=== PATIENT | male | born 1960 | race African-American/Black ===

== ENCOUNTER 2016-05-16 09:04 | Inpatient (IN) ==
--- NOTE | 2016-05-16 09:19 | EKG Report ---
Stationary ECG Study [facility] ER Test Date: 05/16/2016 9:19:39 AM Pat Name: JENNA SONG Department: Room: 262 Gender: M Market Research Analyst: Sridevi Hoyos : 1960 Requested by: Zoya Huang Order Number: [id number] Reading MD: RAMANA BLANTON Intervals [place] Rate: 114 P: 59 [place]: 134 QRS: 68 QRSD: 65 T: 69 QT: 276 QTc: 344 Interpretive Statements SINUS TACHYCARDIA Electronically Signed On 05-16-16 20:55:52 BRANCH OR DEPARTMENT CHIEF LIBRARIAN by RAMANA BLANTON [email or web address]
--- NOTE | 2016-05-16 09:52 | XRay Report ---
Referring Physician: Benny Hudson Exam: XR chest 1V portable Date: May 16, 2016 at 9:21 AM Reason: Shortness of breath Comparison: None Findings: The cardiac silhouette is upper normal in size. The lungs are poorly expanded, and there are scattered opacities throughout both lungs. These opacities mainly have a reticulonodular appearance and could represent pulmonary edema or pneumonia, but interstitial lung disease is not excluded. No pneumothorax or definite pleural fluid is identified. No acute osseous process is seen. Impression: There are prominent scattered opacities within both lungs. This could represent pulmonary edema or pneumonia, but interstitial lung disease is not excluded. Follow-up is recommended. PROCEDURE INTERPRETED AT [facility] DEPARTMENT OF RADIOLOGY Final Report Signed by: Dr. Brandi Golden
[2016-05-16 09:54] LABS: Basophils % 0.2 % (0.0-0.8); Eosinophils % 0.2 % (0.00-10.9); Hematocrit 47.1 VOL% (42.0-52.0); Hemoglobin 14.9 GM/DL (14.0-18.0); Immature Granulocytes % 1.3 %; Immature Granulocytes Absolute 0.22 #; Lymphocytes % 6.3 % (21.2-54.2); Mean Corpuscular HGB Conc 31.6 GM/DL (32-36); Mean Corpuscular Hemoglobin 29 PG (27-34); Mean Corpuscular Volume 92.9 FL (87-102); Mean Platelet Volume 10.8 FL (9.6-12.0); Monocytes # 1.1 10*3/uL (0.11-0.8); Monocytes % 6.8 % (1.7-12.7); Neutrophils # 13.9 10*3/uL (1.4-7.4); Neutrophils % 85.2 % (38.7-73.9); Platelet Count 187 T/CUMM (130-400); Red Blood Count 5.07 MC/CUMM (3.8-5.5); Red Cell Distribution Width 14.3 % (9.3-17.3); White Blood Count 16.3 T/CUMM (4-12)
[2016-05-16 10:34] LABS: Alanine Aminotransferase 25 U/L (16-61); Albumin 3.4 G/DL (3.4-5.0); Alkaline Phosphatase 79 U/L (45-117); Aspartate Amino Transferase 11 U/L (0-37); Blood Urea Nitrogen 19 MG/DL (7-18); Calcium 8.8 MG/DL (8.5-10.1); Glucose 130 MG/DL (74-106); Magnesium 2.3 MG/DL (1.8-2.4); Osmolality,Calculated 284.3 MOS/KG (273-304); Potassium 4.3 MMOL/L (3.5-5.1); Sodium 141 MMOL/L (136-145); Total Protein 6.2 G/DL (6.4-8.3); Troponin I Only < 0.015 NG/ML (0.00-0.045)
[2016-05-16] MEDS ORDERED: cefTRIAXone 1,000 MG in SODIUM CHLORIDE 0.9% 100 ML IV STA (10:36)
[2016-05-16] MEDS ORDERED: FUROSEMIDE 40 MG/4 ML VIAL IV STA (10:37)
[2016-05-16] MEDS ORDERED: ALBUTEROL NEB SOLN 5 MG/ML 20 ML/BOTTLE CONT NEB STA (10:40)
[2016-05-16] MEDS ORDERED: methylPREDNISolone SOD SUC 125 MG/2 ML VIAL IV STA (10:40)
--- NOTE | 2016-05-16 10:41 | Emergency Department Note ---
IJim Gwan, am scribing for, and in the presence of, Kb Everett MD 10 :40. Marguerite Edwards Charles R, MD, personally performed the services described in this documentation, ascribed by Belem Fernandez in my presence, and it is both accurate and complete . Arrival - Arrival Chief Complaint: Shortness of Breath Stated Complaint: trouble breathing ED Nursing Triage Note: Pt c/o increased SOB for a while now but getting worse. Pt is on O2 at 3 lpm in triage. Mode of Arrival: Wheelchair Limitations: No Limitations Source: Patient, Family, Old Records Reviewed, RN Notes Reviewed - History of Present Illness HPI Narrative: Pt is a 55 y/o male, with a hx of Sarcodosis and asthma, who presents to the ED with a c/o SOB. Patient stated that he has always had SOB but lately it has worsened to include dyspnea on exertion, extreme fatigue and SOB with minimal movement, urine frequency and that feeling that he is smothering when he lays flat. When he moves around he has chest pain, nausea and diaphoresis. He continued to note that this is all new for him. 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 He denies being very mobile or any vomiting. Nurses note that pt was given O2 during triage. Consistency: constant Severity: moderate Allergies/Adverse Reactions: Allergies Allergy/AdvReac Type Severity Reaction Status Date / Time No Known Allergies Allergy Verified 05/16/16 09:09 Home Medications: Home Medications Medication Instructions Recorded Confirmed Type Albuterol Sulfate [Albuterol Neb] 2.5 mg RESP TX Q6HR 05/16/16 05/16/16 History Albuterol Sulfate [Ventolin HFA] 2 puff INH Q4H PRN 05/16/16 05/16/16 History Budesonide/Formoterol 160-4.5 2 puff INH BID 05/16/16 05/16/16 History [Symbicort 160-4.5] Calcium (Carb)/Vit D 500-200 1 tablet PO BID 05/16/16 05/16/16 History [Oscal 500 + D] Docusate Sodium 200 mg PO DAILY 05/16/16 05/16/16 History Furosemide Tab [Lasix Tab] 40 mg PO DAILY 05/16/16 05/16/16 History Polyethylene Glycol Powder 17 gm PO BID 05/16/16 05/16/16 History [Miralax] Tamsulosin [Flomax] 0.4 mg PO DAILY 05/16/16 05/16/16 History amLODIPine [Norvasc] 10 mg PO QPM 05/16/16 05/16/16 History azaTHIOprine [Azathioprine] 100 mg PO DAILY 05/16/16 05/16/16 History predniSONE TAB [PredniSONE] 10 mg PO DAILY 05/16/16 05/16/16 History tiZANidine [Zanaflex] 4 mg PO BID PRN 05/16/16 05/16/16 History traMADol TAB [Ultram] 100 mg PO Q6H PRN 05/16/16 05/16/16 History Review of System - Review of System 12 point system: reviewed and no additional remarkable complaints except as stated - Review of System Constitutional: Present: as per HPI, diaphoresis Respiratory: Present: as per HPI, other (shortness of breathe) Gastrointestinal: Present: as per HPI, nausea Genitourinary male: Present: as per HPI, frequency Medical,Surgical,& Family Hx - Medical History Cardio: History of: Hypertension Respiratory: History of: Asthma, Respiratory Problems (Sarcodosis) - Social History Smoking Status: Never smoker Exam Vital Signs: Vital Signs Temperature 98.9 F 05/16/16 09:07 Pulse Rate 118 H 05/16/16 09:07 Respiratory Rate 28 H 05/16/16 09:07 Blood Pressure 116/79 05/16/16 09:07 O2 Sat by Pulse Oximetry 92 L 05/16/16 09:07 - General General appearance: alert, in no apparent distress - Head Head exam: Present: atraumatic, normocephalic - Eye Eye exam: Present: normal appearance, PERRL, EOMI - ENT ENT exam: Present: normal exam, normal oropharynx, mucous membranes moist, TM's normal bilaterally, normal external ear exam - Neck Neck exam: Present: full ROM, trachea midline. Absent: tenderness, meningismus , lymphadenopathy, thyromegaly - Chest Chest inspection: Present: other (Barrel chested) - Respiratory Respiratory exam: Present: rales (bilateral base rales), other (decreased air movement ) - Cardiovascular Cardiovascular exam: Present: regular rate, normal rhythm, normal heart sounds. Absent: murmur, rubs, gallop - Abdominal Exam Abdominal exam: Present: soft, normal bowel sounds. Absent: distention, tenderness, guarding - Extremities Exam Extremities exam: Present: other (+2 edema bilateral lower extremities) - Back Exam Back exam: Present: full ROM. Absent: tenderness - Neurological Exam Neurological exam: Present: alert, oriented X3, CN II-XII intact. Absent: motor sensory deficit - Psychiatric Psychiatric exam: Present: normal affect, normal mood - Skin Skin exam: Present: warm, dry, intact, normal color Course - Consultations Consultation #1: Hospitalist will admit patient Time: 11:07 Results - Labs CBC & BMP: 05/16/16 09:45 05/16/16 09:45 Lab Results: I have reviewed the patients labs Labs: Laboratory Tests 05/16/16 09:45 WBC 16.3 H RBC 5.07 Hgb 14.9 Hct 47.1 MCHC 31.6 L Plt Count 187 Neut % (Auto) 85.2 H Lymph % (Auto) 6.3 L Neut # (Auto) 13.9 H Lymph # (Auto) 1.0 L [place] # (Auto) 1.1 H Laboratory Tests 05/16/16 09:39 Lactic Acid 1.5 Laboratory Tests 05/16/16 09:45 Sodium 141 Potassium 4.3 Chloride 97 L Carbon Dioxide 37 H BUN 19 H Creatinine 1.10 Glucose 130 H Total Protein 6.2 L Critical Care Time Critical Care Time: Yes Total Critical Care Time: 60 Disposition Clinical Impression: Asthma with exacerbation, Acute dyspnea, possible pneumonia, Congestive heart failure, Community acquired pneumonia, Sarcoidosis of lung Case discussed with: patient, patient's family Disposition: Still a Patient Condition: Stable Time of Disposition: 11:09 Contact your physician if you experience:: fever over 101, Difficulty voiding, Redness or swelling, Nausea/Vomiting, Shortness of breath, Bleeding, pain uncontrolled by pain medications, Other Return to the Emergency Department if:: fever over 101, Difficulty voiding, Redness or swelling, Nausea/Vomiting, Shortness of breath, Bleeding, pain uncontrolled by pain medications, Other
[2016-05-16] MEDS ORDERED: ONDANSETRON 4 MG/2 ML VIAL IV PRN (11:14)
[2016-05-16] MEDS ORDERED: ACETAMINOPHEN 325 MG TABLET PO PRN (11:14)
[2016-05-16] MEDS ORDERED: ZALEPLON 5 MG CAPSULE PO PRN (11:14)
[2016-05-16] MEDS ORDERED: DOCUSATE SODIUM 100 MG CAPSULE PO PRN (11:14)
[2016-05-16] MEDS ORDERED: FUROSEMIDE 40 MG/4 ML VIAL ONE (11:31)
[2016-05-16] MEDS ORDERED: methylPREDNISolone SOD SUC 125 MG/2 ML VIAL ONE (11:32)
[2016-05-16] MEDS ORDERED: cefTRIAXone 1,000 MG VIAL ONE (11:32)
[2016-05-16] MEDS ORDERED: tiZANidine 4 MG TABLET PO PRN (11:32)
--- NOTE | 2016-05-16 12:19 | Hospitalist History & Physical ---
Assessment and Plan - Time spent with patient Time spent with patient: Less than 30 minutes (1) Acute dyspnea Status: Acute Assessment and plan: We will admit this patient to the telemetry unit for further evaluation. We will continue antibiotic, steroids, and consult pulmonary to assist with management of sarcoidosis. Current Visit: Yes (2) Sarcoidosis of lung Status: Acute Assessment and plan: We will admit this patient to the telemetry unit for further evaluation. We will continue antibiotic, steroids, and consult pulmonary to assist with management of sarcoidosis. Will consider cardiology consult if cardiac marker are positive. Current Visit: Yes (3) Hypertension Status: Chronic Assessment and plan: Will resume antihypertensive agents as previously ordered in the home setting for blood pressure control. Current Visit: Yes History of Present Illness Chief complaint: "shortness of breath and chest pain" History of present illness: This is a 55 year old unfortunate -Filipino Male with a medical history significant for sarcoidosis. He presented to the ED per POV with his with a compliant of shortness of breath and chest pain. He reports that shortness of breath is a constant issue for him and he is O2 dependent due his sarcoidosis. H He symptoms increased on last night with a new onset of chest pain. He reports this onset as acute, he states that he has never encountered this type of chest discomfort in the past. He reports the pain as chest wall pain with radiation to the back. He denies nausea, vomiting, and epigastric pain. Home Medications Medication Instructions Recorded Confirmed Type Albuterol Sulfate [Albuterol Neb] 2.5 mg RESP TX Q6HR 05/16/16 05/16/16 History Albuterol Sulfate [Ventolin HFA] 2 puff INH Q4H PRN 05/16/16 05/16/16 History Budesonide/Formoterol 160-4.5 2 puff INH BID 05/16/16 05/16/16 History [Symbicort 160-4.5] Calcium (Carb)/Vit D 500-200 1 tablet PO BID 05/16/16 05/16/16 History [Oscal 500 + D] Docusate Sodium 200 mg PO DAILY 05/16/16 05/16/16 History Furosemide Tab [Lasix Tab] 40 mg PO DAILY 05/16/16 05/16/16 History Polyethylene Glycol Powder 17 gm PO BID 05/16/16 05/16/16 History [Miralax] Tamsulosin [Flomax] 0.4 mg PO DAILY 05/16/16 05/16/16 History amLODIPine [Norvasc] 10 mg PO QPM 05/16/16 05/16/16 History azaTHIOprine [Azathioprine] 100 mg PO DAILY 05/16/16 05/16/16 History predniSONE TAB [PredniSONE] 10 mg PO DAILY 05/16/16 05/16/16 History tiZANidine [Zanaflex] 4 mg PO BID PRN 05/16/16 05/16/16 History traMADol TAB [Ultram] 100 mg PO Q6H PRN 05/16/16 05/16/16 History Allergies Allergy/AdvReac Type Severity Reaction Status Date / Time No Known Allergies Allergy Verified 05/16/16 09:09 Medical,Surgical,& Family Hx - Medical History Cardio: History of: Hypertension Respiratory: History of: Asthma, Respiratory Problems (Sarcodosis) - Social History Smoking Status: Never smoker Frequency of Alcohol Use: None Type of Drug Use: None Marital Status: Lives With:: Spouse Functional capacity: independent ambulation Exam - Constitutional General appearance: normal weight - Head Head exam: Present: normal inspection, normocephalic, atraumatic - Eye Eye exam: Present: EOMI. Absent: conjunctival injection, periorbital swelling, scleral icterus Pupils: Present: DIGNA, normal accommodation - ENT ENT exam: Present: normal exam - Neck Neck exam: Present: normal inspection. Absent: lymphadenopathy, thyromegaly - Respiratory Respiratory exam: Present: accessory muscle use, decreased breath sounds. Absent: rales, rhonchi - Cardiovascular Cardiovascular exam: Present: regular rate and rhythm. Absent: diastolic murmur , gallop, JVD, rubs - GI/Abdominal GI/Abdominal exam: Present: normal bowel sounds, soft - Extremities Exam Extremities exam: Present: normal inspection, full ROM - Back Exam Back exam: Present: normal inspection - Neurological Exam Neurological exam: Present: alert, normal gait, CN II-XII intact - Psychiatric Psychiatric exam: Present: normal affect - Skin Skin exam: Present: normal color, warm, dry Results - Labs CBC & BMP: 05/16/16 09:45 05/16/16 09:45 - EKG EKG results: interpreted by CHELOD - Diagnostic Findings Procedure: Chest x-ray: image reviewed by me Quality Measures - VTE Deep Vein Thrombosis/Pulmonary Embolism Present on Admission: No
[2016-05-16] MEDS: ENOXAPARIN 40 MG/0.4 ML SYRINGE SUBCUT SCH (13:12)
[2016-05-16] MEDS: CALCIUM (CARBONATE)/VITAMIN D 500 MG-200 UNIT TABLET PO SCH ×2 (14:47→20:56)
[2016-05-16] MEDS: DOCUSATE SODIUM 100 MG CAPSULE PO SCH (14:47)
[2016-05-16] MEDS: BUDESONIDE/FORMOTEROL 160-4.5 INHALER 6 GM INH SCH ×2 (14:48→20:56)
[2016-05-16] MEDS ORDERED: ALBUTEROL 2.5 MG/3 ML NEB RESP TX PRN (15:00)
[2016-05-16] MEDS ORDERED: FUROSEMIDE 40 MG/4 ML VIAL IV SCH (16:00)
[2016-05-16] MEDS: amLODIPine 10 MG TABLET PO SCH (18:11)
[2016-05-16] MEDS: methylPREDNISolone SOD SUC 40 MG/1 ML VIAL IV SCH (18:11)
[2016-05-16] MEDS: cefTRIAXone 1,000 MG in SODIUM CHLORIDE 0.9% 100 ML IV SCH (18:16)
--- NOTE | 2016-05-16 18:54 | ECHO Report ---
Jose Monet Exam Date: 05/16/2016 11:57 Referring Physician: Technologist: Jevon BARRIOS Age: 55 Ht (in): Wt (lb): Gender: M Exam Location: [facility] Echo Indications: SOB BP: / HR: Rhythm: Sinus Technical Quality: Poor, limited views IMPRESSIONS 1. Is a very limited study. 2. Left ventricle is grossly normal size systolic function ejection fraction 55%. 3. Other cardiac chambers are normal size. 4. Valvular visualization is limited but overall valves are without gross abnormalities. MEASUREMENTS (Male / Female) Normal Values 2D ECHO LV Diastolic Diameter PLAX 3.3 cm 4.2 - 5.9 / 3.9 - 5.3 cm LV Systolic Diameter PLAX 2.7 cm LV Fractional Shortening PLAX 19.1 % IVS Diastolic Thickness 1.5 cm 0.6 - 1.0 / 0.6 - 0.9 cm LVPW Diastolic Thickness 1.1 cm 0.6 - 1.0 / 0.6 - 0.9 cm RV Internal Dim ED PLAX 2.4 cm Aortic Root Diameter 3.3 cm LA Systolic Diameter LX 3.6 cm 3.0 - 4.0 / 2.7 - 3.8 cm DOPPLER TR Peak Velocity 191.0 cm/s TR Peak Gradient 14.6 mmHg FINDINGS Left Ventricle Left ventricle is normal size and overall probably normal systolic function and ejection fraction around 55%. Wall thickness appears be grossly normal. No specific segmental wall motion amount is are noted. Right Ventricle Normal right ventricular size. Right Atrium Normal right atrial size. Left Atrium Normal left atrial size. Mitral Valve Mitral and not well visualized but grossly normal. Aortic Valve Aortic valve is anatomically functionally normal Tricuspid Valve Morphologically normal tricuspid valve. Trace tricuspid valve regurgitation. Tricuspid regurgitation velocities suggest right-sided pressures of 20-25 mmHg Pulmonic Valve Morphologically normal pulmonic valve. Pericardium No pericardial effusion. Aorta Normal size aortic root and proximal ascending aorta. Gee Valiente MD (Electronically Signed) Final Date: 16 May 2016 18:53
[2016-05-16] MEDS: POLYETHYLENE GLYCOL POWDER 17 GM PACK PO SCH (20:56)
--- NOTE | 2016-05-16 20:57 | EKG Report ---
Stationary ECG Study [facility] ER Test Date: 05/16/2016 10:24:55 AM Pat Name: JENNA SONG Department: Room: 262 Gender: M Prototype Machine Operator: JOSHUA Hoyos : 1960 Requested by: Benny Fall Order Number: [id number] Reading MD: RAMANA BLANTON Intervals [place] Rate: 94 P: 54 [place]: 146 QRS: 65 QRSD: 66 T: 71 QT: 302 QTc: 354 Interpretive Statements SINUS RHYTHM Electronically Signed On 05-16-16 20:57:31 SUPERINTENDENT CEMETERY by RAMANA BLANTON [id number]
--- NOTE | 2016-05-16 21:03 | Pulmonology Consult Note ---
History of Present Illness Chief complaint: Acute exacerbation of asthma. Sarcoidosis. History of present illness: Mr. Monet is a 55 year old black male whom I been asked see in pulmonary consultation for evaluation and treatment. This patient has a history of sarcoidosis and he has asthma. He has had a several week history of progressive shortness of breath and eventually he came to the emergency room for additional treatment. He had generalized wheezing prolonged expiration. He also is oxygen dependent because of his sarcoidosis which is followed at [facility]. This patient is not a good historian. As best I can tell he said no sputum production. He admits that his breathing is better. On my exam today he was wheeze free with prolonged incomplete expiration. The patient denies dysphasia he denies reflux and he denies aspiration. He denies any cardiac angina. There is been no hemoptysis. He does have some chronic sinus congestion. The remainder of the review of systems is negative Allergies. None Home medicines. See below Hospital medicines. See below Past history. High blood pressure. Asthma. Sarcoidosis treated at [facility]. Social history patient denies alcohol. He says he is never smoked. He is . He does not use drugs. Family history. Positive for high blood pressure Chest x-ray. 05/16/2016. Bilateral interstitial lung disease most prominent at the periphery of the lungs. Cannot rule out infiltrate especially in the right upper lung. Mild bilateral hilar adenopathy. Heart size is normal. This he has a PA portable film. There is no lateral film. There are no old x-rays for comparison ABGs. None. Microbiology. No studies reported. Lab. White blood cell count is 16,380 566 lymphs and 7 monos. H&H is 14.9/ 47.1. Platelets are 187,000. Electrolytes are normal. Creatinine is 1.1. BUN is 19. Liver function tests are normal. Natruretic peptide is 25. Total protein is low at 6.2. Albumin is 3.4. Globulin is 2.8. No other labs available. Labs been reviewed. Medicines have been reviewed. Physical exam. Vital signs. See below. Afebrile. Psychiatric. Oriented 3. Not a forthcoming historian. Not a good historian. Neurological. Cranial nerves are grossly intact. Patient moves all 4 extremities. Sensory exam was not done. Gait was not tested. Neck. Symmetrical. No meningismus. Lymphatics. No submandibular cervical supraclavicular or epitrochlear adenopathy. Chest. Slight prolongation of expiration. I did not hear any wheezes. I did not hear any large airway congestion. No chest wall tenderness. Heart. No gallop. Abdomen. Nontender. Bowel sounds are normal. No organs were palpated. Extremities. No clubbing. Trace of pedal edema bilaterally. Neuromuscular. Age-appropriate loss of normal curvature of the cervical thoracic and lumbar spine. The remainder the exam is noncontributory. Impression. 1. Acute exacerbation of asthma. Significantly improved. 2. Doubt pneumonia but will get a follow-up chest x-ray. 3. Sarcoidosis under treatment at [facility]. Medicines include azathioprine and steroids 4. Chronic hypoxemia by history. 5. See past 6. High blood pressure Plan. 1. I agree with your treatments. 2. Follow-up chest x-ray. EPA and lateral. 3. Sputum for Gram stain culture and sensitivity. 4. Angiotensin-converting enzyme level. 5. This patient's on protocol antibiotics. He has no known allergies. When he goes home we could continue his Zithromax and we could substitute Ceftin 500 twice daily for another 7-10 days for his Rocephin. I think when he goes home he will need to have at least 40 mg of prednisone a day and he should follow-up with his doctor in [place] in the near future. Home Medications Medication Instructions Recorded Confirmed Type Albuterol Sulfate [Albuterol Neb] 2.5 mg RESP TX Q6HR 05/16/16 05/16/16 History Albuterol Sulfate [Ventolin HFA] 2 puff INH Q4H PRN 05/16/16 05/16/16 History Budesonide/Formoterol 160-4.5 2 puff INH BID 05/16/16 05/16/16 History [Symbicort 160-4.5] Calcium (Carb)/Vit D 500-200 1 tablet PO BID 05/16/16 05/16/16 History [Oscal 500 + D] Docusate Sodium 200 mg PO DAILY 05/16/16 05/16/16 History Furosemide Tab [Lasix Tab] 40 mg PO DAILY 05/16/16 05/16/16 History Polyethylene Glycol Powder 17 gm PO BID 05/16/16 05/16/16 History [Miralax] Tamsulosin [Flomax] 0.4 mg PO DAILY 05/16/16 05/16/16 History amLODIPine [Norvasc] 5 mg PO QPM 05/16/16 05/16/16 History azaTHIOprine [Azathioprine] 100 mg PO DAILY 05/16/16 05/16/16 History predniSONE TAB [PredniSONE] 10 mg PO DAILY 05/16/16 05/16/16 History tiZANidine [Zanaflex] 4 mg PO BID PRN 05/16/16 05/16/16 History traMADol TAB [Ultram] 100 mg PO Q6H PRN 05/16/16 05/16/16 History Allergies Allergy/AdvReac Type Severity Reaction Status Date / Time No Known Allergies Allergy Verified 05/16/16 09:09 Exam (Pulmonay) H&P - Constitutional Vitals: Period Temp Pulse Resp BP Sys/Hope Pulse Ox Last 24 Hr 96.6 F-98.9 F 100-122 20-28 114-134/79-89 93-100 Medical,Surgical,& Family Hx - Medical History Cardio: History of: Hypertension Respiratory: History of: Asthma, Respiratory Problems (Sarcodosis) - Family History Family History: Reports;: Family Diabetes (mother), Family Heart Disease (uncle) - Social History Smoking Status: Never smoker Frequency of Alcohol Use: None Type of Drug Use: None Results - Labs CBC & BMP: 05/16/16 09:45 05/16/16 09:45 Quality Measures - VTE Deep Vein Thrombosis/Pulmonary Embolism Present on Admission: No
[2016-05-16 22:34] LABS: ABG Base Excess 11.1 MMOL/L (-2.5-2.5); ABG HCO3 34.9 MMOL/L (20-26); ABG PCO2 58.7 MM HG (35-48); ABG PH 7.425 (7.35-7.45); ABG PO2 89.2 MM HG (80-95); ABG TCO2 32.8 MMOL/L (23-27); Allen Test Positive
[2016-05-17] MEDS: methylPREDNISolone SOD SUC 40 MG/1 ML VIAL IV SCH ×3 (01:27→17:56)
[2016-05-17 04:56] LABS: Calcium 9.4 MG/DL (8.5-10.1); Magnesium 2.7 MG/DL (1.8-2.4); Osmolality,Calculated 296.8 MOS/KG (273-304); Potassium 4.5 MMOL/L (3.5-5.1); Risk Ratio 2.38; Thyroid Stimulating Hormone 0.036 uIU/ml (0.358-3.74)
--- NOTE | 2016-05-17 08:11 | XRay Report ---
Exam: Chest 2 views Date: May 17, 2016 at 7:36 AM Comparison: Chest one view portable May 16, 2016 Reason: Sarcoid, asthma Findings: The cardiac silhouette is upper normal in size, and the lungs are poorly expanded. Evaluation for hilar adenopathy is difficult due to the poor expansion of the lungs. There are scattered reticulonodular opacities within both lungs. This could represent the patient's reported sarcoid or other interstitial lung disease. However, superimposed pulmonary edema or pneumonia is not excluded. No pneumothorax or definite pleural fluid is identified. The osseous structures appear stable. Impression: There has been no significant change. PROCEDURE INTERPRETED AT [facility] DEPARTMENT OF RADIOLOGY Final Report Signed by: Dr. Brandi Golden
--- NOTE | 2016-05-17 08:19 | EKG Report ---
Stationary ECG Study [facility] Test Date: 05/17/2016 8:19:15 AM Pat Name: JENNA SONG Department: Room: 262 Gender: M Spouter: ANIA : 1960 Requested by: Zoya Huang Order Number: [id number] Reading MD: RAMANA BLANTON Intervals [place] Rate: 115 P: 62 [place]: 145 QRS: 76 QRSD: 72 T: 64 QT: 285 QTc: 353 Interpretive Statements SINUS TACHYCARDIA Electronically Signed On 05-18-16 18:31:33 SHRIMP PACKER by RAMANA BLANTON [email or web address]
[2016-05-17] MEDS: POLYETHYLENE GLYCOL POWDER 17 GM PACK PO SCH ×2 (08:58→20:46)
[2016-05-17] MEDS: azaTHIOprine 50 MG TABLET PO SCH (08:59)
[2016-05-17] MEDS: DOCUSATE SODIUM 100 MG CAPSULE PO SCH (09:00)
[2016-05-17] MEDS: CALCIUM (CARBONATE)/VITAMIN D 500 MG-200 UNIT TABLET PO SCH ×2 (09:00→20:46)
[2016-05-17] MEDS: PANTOPRAZOLE 40 MG TABLET PO SCH (09:00)
[2016-05-17] MEDS ORDERED: predniSONE 20 MG TABLET PO SCH (09:00)
[2016-05-17] MEDS: FUROSEMIDE 40 MG TABLET PO SCH (09:01)
[2016-05-17] MEDS: AZITHROMYCIN 250 MG TABLET PO SCH (09:01)
[2016-05-17] MEDS: TAMSULOSIN 0.4 MG CAPSULE PO SCH (09:01)
[2016-05-17] MEDS: BUDESONIDE/FORMOTEROL 160-4.5 INHALER 6 GM INH SCH ×2 (09:02→20:46)
[2016-05-17] MEDS: traMADol 50 MG TABLET PO PRN (09:03)
--- NOTE | 2016-05-17 09:28 | EKG Report ---
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
--- NOTE | 2016-05-17 10:18 | Hospitalist Progress Note ---
Assessment and Plan (1) Acute dyspnea Status: Acute Assessment and plan: Related to sarcoidosis and a history of asthma. Current Visit: Yes (2) Sarcoidosis of lung Status: Acute Assessment and plan: Continue steroids, bronchodilators and antibiotics. Pulmonary following. Patient receives follow-up for sarcoidosis at [facility]. Current Visit: Yes (3) Hypertension Status: Chronic Current Visit: Yes Qualifiers: Hypertension type: essential hypertension Qualified Code(s): I10 - Essential (primary) hypertension Hospitalist: Subjective Interval history: Patient seen and examined. Pulmonary consult reviewed. Patient denies any significant improvement in his symptoms. He still very short of breath with movement and ambulation. Exam - Constitutional Vitals: Period Temp Pulse Resp BP Sys/Hope Pulse Ox Last 24 Hr 96.6 F-98.9 F 93-122 20-28 107-150/73-95 90-100 General appearance: mild distress - Head Head exam: Present: normal inspection, normocephalic, atraumatic - Eye Eye exam: Present: EOMI - Respiratory Respiratory exam: Present: clear to auscultation bilaterally - Cardiovascular Cardiovascular exam: Present: tachycardia - GI/Abdominal GI/Abdominal exam: Present: normal bowel sounds, soft. Absent: tenderness, rebound - Extremities Exam Extremities exam: Absent: edema - Neurological Exam Neurological exam: Present: alert, oriented X3 - Psychiatric Psychiatric exam: Present: normal affect, normal mood - Skin Skin exam: Present: normal color, warm, dry Results - Labs CBC & BMP: 05/16/16 09:45 05/17/16 03:46 Lab Results: I have reviewed the past 24 hour labs Quality Measures - VTE Deep Vein Thrombosis/Pulmonary Embolism Present on Admission: No
[2016-05-17] MEDS: ENOXAPARIN 40 MG/0.4 ML SYRINGE SUBCUT SCH (11:06)
--- NOTE | 2016-05-17 13:34 | Pulmonology Progress Note ---
Pulmonary - PN: Subj Interval history: Is a 55-year-old black male whom I saw in pulmonary consultation 05/16/2016. My impressions were. 1. Acute exacerbation of asthma. Significantly improved. 2. Doubt pneumonia but will get a follow-up chest x-ray. 3. Sarcoidosis under treatment at [facility]. Medicines include azathioprine and steroids 4. Chronic hypoxemia by history. 5. See past 6. High blood pressure Plan. 1. I agree with your treatments. 2. Follow-up chest x-ray. EPA and lateral. 3. Sputum for Gram stain culture and sensitivity. 4. Angiotensin-converting enzyme level. 5. This patient's on protocol antibiotics. He has no known allergies. When he goes home we could continue his Zithromax and we could substitute Ceftin 500 twice daily for another 7-10 days for his Rocephin. I think when he goes home he will need to have at least 40 mg of prednisone a day and he should follow-up with his doctor in [place] in the near future. 05/17/2016. Today's x-ray looks a lot better. Patient's chest sounds much better. He still complains of shortness of breath. He says he has an appointment at [facility] on June 04, 2016. He says he also plans to get heart and lung biopsy but he thinks to be easier to get that in [facility]. I did not ask any more details. Creatinine is 1.0. BUNs 25. Electrolytes are normal. ABGs on FiO2 32% showed a pH 7.42. PCO2 of 58.7. PO2 is 89.2. Bicarb is 34.9. This patient's a CO2 retainer will have to watch higher FiO2's carefully. There are no positive cultures. Continue present medicines for the time being Physical exam. Vital signs. See below Chest prolonged expiration. I do not hear any wheezes. Heart no gallop Note that EKG shows a sinus rhythm and no acute changes. Abdomen. Positive bowel sounds Extremities. No edema no evidence of deep venous thrombophlebitis Psychiatric oriented 3 Neurologic. Cranial nerves are intact patient moves all 4 extremities I watched him stand up and he does fine with this Lymphatics. No submandibular cervical supraclavicular or epitrochlear adenopathy. Neck. Symmetrical. No meningismus. Remainder physical exam is noncontributory Plan. 1. Continue present regimen. 2. From a pulmonary standpoint this patient gets better we can send him back to B higher dose of steroids that he was admitted. Exam (Progress Note) - Constitutional Vitals: Period Temp Pulse Resp BP Sys/Hope Pulse Ox Last 24 Hr 97.3 F-98.5 F 93-122 20-22 107-150/73-95 90-100 Results - Labs CBC & BMP: 05/16/16 09:45 05/17/16 03:46
[2016-05-17] MEDS: amLODIPine 10 MG TABLET PO SCH (18:00)
[2016-05-17] MEDS: cefTRIAXone 1,000 MG in SODIUM CHLORIDE 0.9% 100 ML IV SCH (18:01)
[2016-05-18] MEDS: methylPREDNISolone SOD SUC 40 MG/1 ML VIAL IV SCH ×3 (01:18→18:00)
--- NOTE | 2016-05-18 07:20 | Physician Query Form ---
CLICK EDIT DOCUMENT TO SELECT QUERY ANSWER --> OK --> SIGN Sameera Perea RN Clinical [employer] W) [phone] (f) [phone] [email or web address] PROVIDERS: Make your selection(s) from the choices in EACH section by typing an "x" and enter comments in the comment section. Please use your independent medical judgment in providing your response. This request does not imply that any particular answer is desired or expected. CLINICAL INDICATORS: (Providers should not edit this section) Based on documentation of "he is O2 dependent due his sarcoidosis". Based on the above, could you clarify the appropriate diagnosis, if significant , that supports the above abnormalities and additional evaluation, monitoring, and/or treatment rendered: (X ) Pt. has chronic respiratory failure ( ) Pt. does not have chronic respiratory failure ( ) Other, please specify: ( ) Clinically unable to determine COMMENTS: Use of terms such as suspected, likely, or probable (associated with a specific diagnosis that is being evaluated, monitored, or treated as if it exists) are acceptable and can be restated in the discharge summary if not ruled out. MTDD
[2016-05-18] MEDS: AZITHROMYCIN 250 MG TABLET PO SCH (09:03)
[2016-05-18] MEDS: DOCUSATE SODIUM 100 MG CAPSULE PO SCH (09:04)
[2016-05-18] MEDS: CALCIUM (CARBONATE)/VITAMIN D 500 MG-200 UNIT TABLET PO SCH ×2 (09:04→21:24)
[2016-05-18] MEDS: PANTOPRAZOLE 40 MG TABLET PO SCH (09:04)
[2016-05-18] MEDS: azaTHIOprine 50 MG TABLET PO SCH (09:04)
[2016-05-18] MEDS: TAMSULOSIN 0.4 MG CAPSULE PO SCH (09:04)
[2016-05-18] MEDS: FUROSEMIDE 40 MG TABLET PO SCH (09:04)
[2016-05-18] MEDS: POLYETHYLENE GLYCOL POWDER 17 GM PACK PO SCH ×2 (09:05→21:24)
[2016-05-18] MEDS: traMADol 50 MG TABLET PO PRN (09:08)
[2016-05-18] MEDS: BUDESONIDE/FORMOTEROL 160-4.5 INHALER 6 GM INH SCH ×2 (09:09→21:24)
[2016-05-18] MEDS: ENOXAPARIN 40 MG/0.4 ML SYRINGE SUBCUT SCH ×2 (09:11→10:53)
--- NOTE | 2016-05-18 14:10 | Hospitalist Progress Note ---
Assessment and Plan (1) Acute dyspnea Status: Acute Assessment and plan: Related to sarcoidosis and a history of asthma. Current Visit: Yes (2) Sarcoidosis of lung Status: Acute Assessment and plan: Continue steroids, bronchodilators and antibiotics. Pulmonary following. Patient receives follow-up for sarcoidosis at [facility]. Current Visit: Yes (3) Hypertension Status: Chronic Current Visit: Yes Qualifiers: Hypertension type: essential hypertension Qualified Code(s): I10 - Essential (primary) hypertension Hospitalist: Subjective Interval history: Patient seen and examined. Pulmonary input reviewed. Patient is feeling a little better. No events overnight. Exam - Constitutional Vitals: Period Temp Pulse Resp BP Sys/Hope Pulse Ox Last 24 Hr 97.2 F-98.0 F 76-98 18-20 107-134/73-92 98-100 General appearance: no acute distress - Head Head exam: Present: normal inspection, normocephalic, atraumatic - Eye Eye exam: Present: EOMI Pupils: Present: DIGNA - ENT ENT exam: Present: normal exam - Neck Neck exam: Present: normal inspection - Respiratory Respiratory exam: Present: rales - Cardiovascular Cardiovascular exam: Present: regular rate and rhythm - GI/Abdominal GI/Abdominal exam: Present: normal bowel sounds, soft. Absent: tenderness, rebound - Extremities Exam Extremities exam: Absent: edema - Neurological Exam Neurological exam: Present: alert, oriented X3 - Psychiatric Psychiatric exam: Present: normal affect, normal mood - Skin Skin exam: Present: normal color, warm, dry Results - Labs CBC & BMP: 05/16/16 09:45 05/17/16 03:46 Lab Results: I have reviewed the past 24 hour labs Quality Measures - VTE Deep Vein Thrombosis/Pulmonary Embolism Present on Admission: No
[2016-05-18] MEDS: cefTRIAXone 1,000 MG in SODIUM CHLORIDE 0.9% 100 ML IV SCH (18:02)
[2016-05-18] MEDS: amLODIPine 10 MG TABLET PO SCH (18:21)
[2016-05-19] MEDS: methylPREDNISolone SOD SUC 40 MG/1 ML VIAL IV SCH ×3 (02:05→18:05)
[2016-05-19] MEDS: traMADol 50 MG TABLET PO PRN (06:21)
[2016-05-19] MEDS: CALCIUM (CARBONATE)/VITAMIN D 500 MG-200 UNIT TABLET PO SCH ×2 (08:57→20:56)
[2016-05-19] MEDS: azaTHIOprine 50 MG TABLET PO SCH (08:57)
[2016-05-19] MEDS: PANTOPRAZOLE 40 MG TABLET PO SCH (08:57)
[2016-05-19] MEDS: FUROSEMIDE 40 MG TABLET PO SCH (08:57)
[2016-05-19] MEDS: TAMSULOSIN 0.4 MG CAPSULE PO SCH (08:57)
[2016-05-19] MEDS: AZITHROMYCIN 250 MG TABLET PO SCH (08:57)
[2016-05-19] MEDS: DOCUSATE SODIUM 100 MG CAPSULE PO SCH (09:01)
[2016-05-19] MEDS: POLYETHYLENE GLYCOL POWDER 17 GM PACK PO SCH ×2 (09:01→20:55)
[2016-05-19] MEDS: BUDESONIDE/FORMOTEROL 160-4.5 INHALER 6 GM INH SCH ×2 (09:02→20:58)
[2016-05-19] MEDS: ENOXAPARIN 40 MG/0.4 ML SYRINGE SUBCUT SCH (11:00)
--- NOTE | 2016-05-19 16:39 | Hospitalist Progress Note ---
Assessment and Plan (1) Acute dyspnea Status: Acute Assessment and plan: We will continue steroids, bronchodilators and antibiotics as previously ordered. Current Visit: Yes (2) Sarcoidosis of lung Status: Acute Assessment and plan: No acute exacerbation noted thusfar, will manage symptoms as needed. Current Visit: Yes (3) Hypertension Status: Chronic Assessment and plan: Continue antihypertensive agents as ordered. Current Visit: Yes Qualifiers: Hypertension type: essential hypertension Qualified Code(s): I10 - Essential (primary) hypertension (4) Steroid long-term use Status: Chronic Assessment and plan: Noted elevations in blood glucose levels; will start accuchecks with low sliding scale to manage blood glucose levels. Current Visit: Yes Hospitalist: Subjective Interval history: Patient seen and examined. Reports multiple episodes of bloody stool on last night and this morning. Denies abdominal pain, nausea, and vomiting. Reports "feeling slightly better". Exam - Constitutional Vitals: Period Temp Pulse Resp BP Sys/Hope Pulse Ox Last 24 Hr 97.0 F-99.5 F 78-99 18-20 115-135/76-89 94-100 General appearance: normal weight, no acute distress - Head Head exam: Present: normal inspection - Eye Eye exam: Present: EOMI. Absent: conjunctival injection, periorbital swelling, scleral icterus Pupils: Present: DIGNA, normal accommodation - ENT ENT exam: Present: normal exam - Neck Neck exam: Present: normal inspection. Absent: lymphadenopathy, meningismus, tenderness, thyromegaly - Respiratory Respiratory exam: Present: chest wall tenderness, decreased breath sounds. Absent: rales, rhonchi, stridor, wheezes - Cardiovascular Cardiovascular exam: Present: regular rate and rhythm. Absent: carotid bruit, diastolic murmur, gallop, JVD, rubs, systolic murmur, tachycardia - GI/Abdominal GI/Abdominal exam: Present: normal bowel sounds, soft. Absent: firm, guarding, tenderness, rebound - Extremities Exam Extremities exam: Present: normal inspection, full ROM - Back Exam Back exam: Present: normal inspection - Neurological Exam Neurological exam: Present: alert, oriented X3, CN II-XII intact - Psychiatric Psychiatric exam: Present: normal affect - Skin Skin exam: Present: normal color, dry, intact Results - Labs CBC & BMP: 05/16/16 09:45 05/17/16 03:46 Lab Results: I have reviewed the past 24 hour labs Quality Measures - VTE Deep Vein Thrombosis/Pulmonary Embolism Present on Admission: No
[2016-05-19] MEDS ORDERED: DEXTROSE 50% 25 GM/50 ML VIAL IV PRN (16:46)
[2016-05-19] MEDS ORDERED: GLUCAGON 1 MG VIAL IM PRN (16:46)
[2016-05-19] MEDS: amLODIPine 10 MG TABLET PO SCH (18:05)
[2016-05-19] MEDS: cefTRIAXone 1,000 MG in SODIUM CHLORIDE 0.9% 100 ML IV SCH (18:09)
[2016-05-19] MEDS: INSULIN REGULAR 100 UNIT/ML SUBCUT SCH (20:57)
[2016-05-20] MEDS: methylPREDNISolone SOD SUC 40 MG/1 ML VIAL IV SCH ×3 (02:00→17:33)
[2016-05-20] MEDS: traMADol 50 MG TABLET PO PRN (02:55)
[2016-05-20] MEDS: POLYETHYLENE GLYCOL POWDER 17 GM PACK PO SCH ×2 (08:55→21:21)
[2016-05-20] MEDS: DOCUSATE SODIUM 100 MG CAPSULE PO SCH (08:56)
[2016-05-20] MEDS: AZITHROMYCIN 250 MG TABLET PO SCH (08:56)
[2016-05-20] MEDS: azaTHIOprine 50 MG TABLET PO SCH (08:57)
[2016-05-20] MEDS: CALCIUM (CARBONATE)/VITAMIN D 500 MG-200 UNIT TABLET PO SCH ×2 (08:57→21:22)
[2016-05-20] MEDS: PANTOPRAZOLE 40 MG TABLET PO SCH (08:57)
[2016-05-20] MEDS: FUROSEMIDE 40 MG TABLET PO SCH (08:57)
[2016-05-20] MEDS: TAMSULOSIN 0.4 MG CAPSULE PO SCH (08:58)
[2016-05-20] MEDS: BUDESONIDE/FORMOTEROL 160-4.5 INHALER 6 GM INH SCH ×2 (09:03→21:22)
--- NOTE | 2016-05-20 09:22 | Hospitalist Progress Note ---
Assessment and Plan (1) Acute dyspnea Status: Acute Assessment and plan: We will continue steroids, bronchodilators and antibiotics as previously ordered. Current Visit: Yes (2) Sarcoidosis of lung Status: Acute Assessment and plan: No acute exacerbation noted thusfar, will manage symptoms as needed. Current Visit: Yes (3) Hypertension Status: Chronic Assessment and plan: Continue antihypertensive agents as ordered. Current Visit: Yes Qualifiers: Hypertension type: essential hypertension Qualified Code(s): I10 - Essential (primary) hypertension (4) Steroid long-term use Status: Chronic Assessment and plan: Continue accuchecks with low sliding scale to manage blood glucose levels. Current Visit: Yes Hospitalist: Subjective Interval history: Patient seen and examined. No acute overnight events. No further episodes of melena. Patient states"I still feel bad". Exam - Constitutional Vitals: Period Temp Pulse Resp BP Sys/Hope Pulse Ox Last 24 Hr 96.7 F-99.5 F 69-109 18-20 111-123/66-84 94-100 General appearance: normal weight, mild distress - Head Head exam: Present: normal inspection, normocephalic, atraumatic - Eye Eye exam: Present: EOMI Pupils: Present: DIGNA, normal accommodation - ENT ENT exam: Present: normal external ear exam - Neck Neck exam: Present: normal inspection. Absent: lymphadenopathy, meningismus, tenderness, thyromegaly - Respiratory Respiratory exam: Absent: accessory muscle use, decreased breath sounds, rales, rhonchi, stridor, wheezes - Cardiovascular Cardiovascular exam: Present: regular rate and rhythm. Absent: diastolic murmur , gallop, JVD, rubs, systolic murmur - GI/Abdominal GI/Abdominal exam: Present: normal bowel sounds, soft. Absent: guarding, tenderness - Extremities Exam Extremities exam: Present: normal inspection, full ROM - Back Exam Back exam: Present: normal inspection - Neurological Exam Neurological exam: Present: alert, oriented X3, CN II-XII intact - Psychiatric Psychiatric exam: Present: normal affect, normal mood - Skin Skin exam: Present: normal color, warm, dry Results - Labs CBC & BMP: 05/16/16 09:45 05/17/16 03:46 Lab Results: I have reviewed the past 24 hour labs Quality Measures - VTE Deep Vein Thrombosis/Pulmonary Embolism Present on Admission: No
[2016-05-20] MEDS: INSULIN REGULAR 100 UNIT/ML SUBCUT SCH ×4 (09:55→21:22)
[2016-05-20] MEDS: ENOXAPARIN 40 MG/0.4 ML SYRINGE SUBCUT SCH (12:39)
[2016-05-20] MEDS: cefTRIAXone 1,000 MG in SODIUM CHLORIDE 0.9% 100 ML IV SCH (17:35)
[2016-05-20] MEDS: amLODIPine 10 MG TABLET PO SCH (18:14)
[2016-05-21] MEDS: methylPREDNISolone SOD SUC 40 MG/1 ML VIAL IV SCH ×3 (02:24→18:05)
--- NOTE | 2016-05-21 06:39 | EKG Report ---
Stationary ECG Study [facility] Test Date: 05/21/2016 3:09:39 AM Pat Name: JENNA SONG Department: Room: 262 Gender: M Improvement Lead: : 1960 Requested by: Zoya Huang Order Number: [id number] Reading MD: RAMANA BLANTON Intervals [place] Rate: 70 P: 72 ME: 153 QRS: 62 QRSD: 80 T: 82 QT: 364 QTc: 385 Interpretive Statements SINUS RHYTHM WITH OCCASIONAL VENTRICULAR PREMATURE COMPLEXES Electronically Signed On 05-22-16 11:59:13 CDT by RAMANA BLANTON [email or web address]
[2016-05-21] MEDS: CALCIUM (CARBONATE)/VITAMIN D 500 MG-200 UNIT TABLET PO SCH ×2 (09:07→22:01)
[2016-05-21] MEDS: TAMSULOSIN 0.4 MG CAPSULE PO SCH (09:07)
[2016-05-21] MEDS: AZITHROMYCIN 250 MG TABLET PO SCH (09:08)
[2016-05-21] MEDS: PANTOPRAZOLE 40 MG TABLET PO SCH (09:08)
[2016-05-21] MEDS: POLYETHYLENE GLYCOL POWDER 17 GM PACK PO SCH ×2 (09:09→22:01)
[2016-05-21] MEDS: DOCUSATE SODIUM 100 MG CAPSULE PO SCH (09:09)
[2016-05-21] MEDS: azaTHIOprine 50 MG TABLET PO SCH (09:10)
[2016-05-21] MEDS: FUROSEMIDE 40 MG TABLET PO SCH (09:11)
[2016-05-21] MEDS: BUDESONIDE/FORMOTEROL 160-4.5 INHALER 6 GM INH SCH ×2 (09:12→22:02)
[2016-05-21] MEDS: INSULIN REGULAR 100 UNIT/ML SUBCUT SCH ×4 (09:19→22:02)
--- NOTE | 2016-05-21 09:35 | Hospitalist Progress Note ---
Assessment and Plan (1) Acute dyspnea Status: Acute Assessment and plan: We will continue steroids, bronchodilators and antibiotics as previously ordered. Current Visit: Yes (2) Sarcoidosis of lung Status: Acute Assessment and plan: No acute exacerbation noted thusfar, will manage symptoms as needed. Current Visit: Yes (3) Hypertension Status: Chronic Assessment and plan: Continue antihypertensive agents as ordered. Current Visit: Yes Qualifiers: Hypertension type: essential hypertension Qualified Code(s): I10 - Essential (primary) hypertension (4) Steroid long-term use Status: Chronic Assessment and plan: Continue accuchecks with low sliding scale to manage blood glucose levels. Current Visit: Yes Hospitalist: Subjective Interval history: Patient seen and evaluated. No acute overnight events. Reports slight improvement of symptoms on yesterday. States " I feel a little better". Exam - Constitutional Vitals: Period Temp Pulse Resp BP Sys/Hope Pulse Ox Last 24 Hr 97.6 F-98.6 F 70-102 18-20 113-139/74-94 92-100 General appearance: normal weight, no acute distress - Head Head exam: Present: normal inspection, normocephalic, atraumatic - Eye Eye exam: Present: EOMI. Absent: conjunctival injection, periorbital swelling, scleral icterus Pupils: Present: normal accommodation - ENT ENT exam: Present: normal exam - Neck Neck exam: Present: normal inspection. Absent: lymphadenopathy, meningismus, tenderness, thyromegaly - Respiratory Respiratory exam: Present: accessory muscle use, decreased breath sounds. Absent: rales, rhonchi, stridor - Cardiovascular Cardiovascular exam: Present: regular rate and rhythm. Absent: diastolic murmur , gallop, JVD, rubs, systolic murmur - GI/Abdominal GI/Abdominal exam: Present: normal bowel sounds, soft - Extremities Exam Extremities exam: Present: normal inspection, full ROM - Neurological Exam Neurological exam: Present: alert, oriented X3 - Psychiatric Psychiatric exam: Present: normal affect, normal mood - Skin Skin exam: Present: warm, dry Results - Labs CBC & BMP: 05/16/16 09:45 05/17/16 03:46 Quality Measures - VTE Deep Vein Thrombosis/Pulmonary Embolism Present on Admission: No
--- NOTE | 2016-05-21 10:05 | XRay Report ---
Portable chest Date: 05/21/2016 Clinical history: Pneumonia Comparison: 05/17/2016 Technique: Portable AP sitting chest Findings: Limited expiratory chest with heart stable in size. Reduced parenchymal findings at the lung bases with stable mediastinum. Mild gaseous distention of the bowel in the left upper quadrant. Degenerative changes are noted. Impression: Limited expiratory chest with reduced atelectasis/infiltration/edema at the lung bases. Associated possible mild ileus. PROCEDURE INTERPRETED AT [facility] DEPARTMENT OF RADIOLOGY Final Report Signed by: Dr. Georgia Robert
[2016-05-21 10:30] LABS: Hemoglobin 14.1 GM/DL (14.0-18.0); Lymphocytes # 0.3 10*3/uL (1.4-4.0); Lymphocytes % 1.7 % (21.2-54.2); White Blood Count 14.9 T/CUMM (4-12)
[2016-05-21 10:59] LABS: Basophils % 0.1 % (0.0-0.8); Hematocrit 46.1 VOL% (42.0-52.0); Immature Granulocytes % 1.5 %; Immature Granulocytes Absolute 0.22 #; Mean Corpuscular HGB Conc 30.6 GM/DL (32-36); Mean Corpuscular Hemoglobin 29 PG (27-34); Mean Corpuscular Volume 94.9 FL (87-102); Mean Platelet Volume 11.5 FL (9.6-12.0); Monocytes # 0.5 10*3/uL (0.11-0.8); Monocytes % 3.6 % (1.7-12.7); Neutrophils # 13.8 10*3/uL (1.4-7.4); Neutrophils % 93.1 % (38.7-73.9); Platelet Count 196 T/CUMM (130-400); Red Blood Count 4.86 MC/CUMM (3.8-5.5); Red Cell Distribution Width 13.7 % (9.3-17.3)
[2016-05-21 11:08] LABS: Alanine Aminotransferase 26 U/L (16-61); Alkaline Phosphatase 78 U/L (45-117); Aspartate Amino Transferase 14 U/L (0-37); Bilirubin,Total < 0.39 MG/DL (0.2-1.0); Blood Urea Nitrogen 23 MG/DL (7-18); Calcium 8.2 MG/DL (8.5-10.1); Glucose 253 MG/DL (74-106); Magnesium 2.6 MG/DL (1.8-2.4); Osmolality,Calculated 293.3 MOS/KG (273-304); Potassium 4.7 MMOL/L (3.5-5.1); Sodium 141 MMOL/L (136-145)
[2016-05-21 11:38] LABS: Hypochromasia 1+; Lymphocytes 3 % (20-55); Segmented Neutrophils 94 % (50-85); Total Cells Counted 100
[2016-05-21 11:39] LABS: Platelet Estimate Adequate
[2016-05-21] MEDS: ENOXAPARIN 40 MG/0.4 ML SYRINGE SUBCUT SCH (13:05)
[2016-05-21] MEDS: amLODIPine 10 MG TABLET PO SCH (18:03)
[2016-05-21] MEDS: cefTRIAXone 1,000 MG in SODIUM CHLORIDE 0.9% 100 ML IV SCH (18:07)
[2016-05-22] MEDS: methylPREDNISolone SOD SUC 40 MG/1 ML VIAL IV SCH ×2 (03:34→09:23)
[2016-05-22 06:01] LABS: Basophils # 0.1 10*3/uL (0.0-0.2); Basophils % 0.3 % (0.0-0.8); Hematocrit 43.5 VOL% (42.0-52.0); Hemoglobin 13.9 GM/DL (14.0-18.0); Immature Granulocytes % 2.7 %; Immature Granulocytes Absolute 0.47 #; Lymphocytes # 0.5 10*3/uL (1.4-4.0); Mean Corpuscular Hemoglobin 29 PG (27-34); Mean Corpuscular Volume 90.6 FL (87-102); Mean Platelet Volume 11.3 FL (9.6-12.0); Monocytes # 0.8 10*3/uL (0.11-0.8); Monocytes % 4.5 % (1.7-12.7); Neutrophils # 15.5 10*3/uL (1.4-7.4); Neutrophils % 89.5 % (38.7-73.9); Platelet Count 199 T/CUMM (130-400); Red Cell Distribution Width 13.6 % (9.3-17.3); White Blood Count 17.3 T/CUMM (4-12)
[2016-05-22 06:50] LABS: Albumin 3.2 G/DL (3.4-5.0); Bilirubin,Total 0.6 MG/DL (0.2-1.0); Calcium 8.3 MG/DL (8.5-10.1); Magnesium 2.7 MG/DL (1.8-2.4); Total Protein 6.1 G/DL (6.4-8.3)
[2016-05-22 07:06] LABS: Hypochromasia 1+; Lymphocytes 2 % (20-55); Platelet Estimate Normal; Segmented Neutrophils 97 % (50-85); Total Cells Counted 100
--- NOTE | 2016-05-22 08:00 | XRay Report ---
Portable chest Date: 05/22/2016 Clinical history: Pneumonia Comparison: 05/21/2016 Technique: Portable AP sitting chest Findings: Persistent cardiomegaly. Expiratory chest with little change in the parenchymal findings in the lungs. Stable mediastinum and osseous structures. Impression: Limited expiratory chest with stable atelectasis/infiltration/edema especially at the lung bases. Underlying chronic scarring. Reduced gaseous distention of the bowel. PROCEDURE INTERPRETED AT [facility] DEPARTMENT OF RADIOLOGY Final Report Signed by: Dr. Georgia Robert
[2016-05-22 08:23] VITALS: BP 128/81
--- NOTE | 2016-05-22 08:25 | Discharge Summary ---
Hospital Course - Hospital Course Hospital Course: This is a 55 year old unfortunate -[place] Male with a medical history significant for sarcoidosis. He presented to the ED on 05/16 with a compliant of shortness of breath and chest pain. He reported that shortness of breath is a constant issue for him and he is O2 dependent due his sarcoidosis. He also reported symptoms increased on last night with a new onset of acute chest pain with radiation to the back which he has never experienced before. He was admitted to inpatient telemetry for continuation of care. He received IV antibiotics, corticosteroids, and pulmonary was consulted to assist in the management of his. His symptoms gradually improved and he is appropriate from our standpoint today. - Time spent with patient Time with patient DS: Less than 30 minutes Diagnosis - Discharge Diagnosis (1) Acute dyspnea Status: Acute (2) Sarcoidosis of lung Status: Acute (3) Hypertension Status: Chronic (4) Steroid long-term use Status: Chronic Discharge Plan - Discharge Medications No Action amLODIPine [Norvasc] 5 mg PO QPM azaTHIOprine [Azathioprine] 100 mg PO DAILY Budesonide/Formoterol 160-4.5 [Symbicort 160-4.5] 2 puff INH BID Calcium (Carb)/Vit D 500-200 [Oscal 500 + D] 1 tablet PO BID Furosemide Tab [Lasix Tab] 40 mg PO DAILY Polyethylene Glycol Powder [Miralax] 17 gm PO BID predniSONE TAB [PredniSONE] 10 mg PO DAILY Tamsulosin [Flomax] 0.4 mg PO DAILY traMADol TAB [Ultram] 100 mg PO Q6H PRN PRN Reason: Pain Albuterol Sulfate [Ventolin HFA] 2 puff INH Q4H PRN PRN Reason: Shortness Of Breath/Wheezing Docusate Sodium 200 mg PO DAILY tiZANidine [Zanaflex] 4 mg PO BID PRN PRN Reason: Pain Albuterol Sulfate [Albuterol Neb] 2.5 mg RESP TX Q6HR - Follow Up or Referral - Forms/Instructions Exam - Constitutional Vitals: Period Temp Pulse Resp BP Sys/Hope Pulse Ox Last 24 Hr 96.2 F-97.9 F 65-109 18-20 117-139/71-94 92-100 General appearance: normal weight, no acute distress - Head Head exam: Present: normal inspection - Eye Eye exam: Present: EOMI, conjunctival injection Pupils: Present: DIGNA, normal accommodation - ENT ENT exam: Present: normal exam - Neck Neck exam: Present: normal inspection. Absent: lymphadenopathy, meningismus, tenderness, thyromegaly - Respiratory Respiratory exam: Present: decreased breath sounds. Absent: rales, rhonchi, stridor, wheezes - Cardiovascular Cardiovascular exam: Present: regular rate and rhythm. Absent: diastolic murmur , gallop, JVD, rubs, systolic murmur, tachycardia - GI/Abdominal GI/Abdominal exam: Present: normal bowel sounds, soft - Extremities Exam Extremities exam: Present: normal inspection, full ROM - Back Exam Back exam: Present: normal inspection - Neurological Exam Neurological exam: Present: alert, oriented X3 - Psychiatric Psychiatric exam: Present: normal affect, normal mood - Skin Skin exam: Present: normal color, dry, intact Discharge Results Procedures and tests throughout hospitalization: Pending Orders 05/16/16 11:15 Urinalysis Routine 05/19/16 16:55 Occult Blood, Stool Stat Labs on day of discharge: Labs from last 24 hours 05/22/16 05/22/16 05/22/16 06:10 03:47 03:47 WBC 17.3 H RBC 4.80 Hgb 13.9 L Hct 43.5 MCV 90.6 MCH 29 MCHC 32.0 RDW 13.6 Plt Count 199 MPV 11.3 Neut % (Auto) 89.5 H Lymph % (Auto) 3.0 L [place] % (Auto) 4.5 Eos % (Auto) 0.0 Baso % (Auto) 0.3 Neut # (Auto) 15.5 H Lymph # (Auto) 0.5 L [place] # (Auto) 0.8 Eos # (Auto) 0.0 Baso # (Auto) 0.1 Total Counted 100 Immature Gran % 2.7 Nucleated RBC % 0.0 Immature Gran # 0.47 Segmented Neutrophils 97 H Lymphocytes 2 L Monocytes 1 L Nucleated RBCs # 0.00 Platelet Estimate Normal Hypochromasia 1+ Morphology Comment Sodium 143 Potassium 5.0 Chloride 96 L Carbon Dioxide 37 H Anion Gap 15.0 BUN 24 H Creatinine 0.80 GFR Calculation 126 BUN/Creatinine Ratio 30.00 H Glucose 120 H POC Glucose 188 H Calculated Osmolality 289.0 Calcium 8.3 L Magnesium 2.7 H Total Bilirubin 0.60 AST 15 ALT 30 Alkaline Phosphatase 73 Total Protein 6.1 L Albumin 3.2 L Globulin 2.9 Albumin/Globulin Ratio 1.1 05/21/16 05/21/16 05/21/16 20:13 16:41 11:57 WBC RBC Hgb Hct MCV MCH MCHC RDW Plt Count MPV Neut % (Auto) Lymph % (Auto) [place] % (Auto) Eos % (Auto) Baso % (Auto) Neut # (Auto) Lymph # (Auto) [place] # (Auto) Eos # (Auto) Baso # (Auto) Total Counted Immature Gran % Nucleated RBC % Immature Gran # Segmented Neutrophils Lymphocytes Monocytes Nucleated RBCs # Platelet Estimate Hypochromasia Morphology Comment Sodium Potassium Chloride Carbon Dioxide Anion Gap BUN Creatinine GFR Calculation BUN/Creatinine Ratio Glucose POC Glucose 276 H 140 H 104 Calculated Osmolality Calcium Magnesium Total Bilirubin AST ALT Alkaline Phosphatase Total Protein Albumin Globulin Albumin/Globulin Ratio 05/21/16 05/21/16 05/21/16 09:55 09:55 07:39 WBC 14.9 H RBC 4.86 Hgb 14.1 Hct 46.1 MCV 94.9 MCH 29 MCHC 30.6 L RDW 13.7 Plt Count 196 MPV 11.5 Neut % (Auto) 93.1 H Lymph % (Auto) 1.7 L [place] % (Auto) 3.6 Eos % (Auto) 0.0 Baso % (Auto) 0.1 Neut # (Auto) 13.8 H Lymph # (Auto) 0.3 L [place] # (Auto) 0.5 Eos # (Auto) 0.0 Baso # (Auto) 0.0 Total Counted 100 Immature Gran % 1.5 Nucleated RBC % 0.0 Immature Gran # 0.22 Segmented Neutrophils 94 H Lymphocytes 3 L Monocytes 3 Nucleated RBCs # 0.00 Platelet Estimate Adequate Hypochromasia 1+ Morphology Comment Sodium 141 Potassium 4.7 Chloride 96 L Carbon Dioxide 37 H Anion Gap 12.7 BUN 23 H Creatinine 0.90 GFR Calculation 120 BUN/Creatinine Ratio 25.00 H Glucose 253 H POC Glucose 143 H Calculated Osmolality 293.3 Calcium 8.2 L Magnesium 2.6 H Total Bilirubin < 0.39 AST 14 ALT 26 Alkaline Phosphatase 78 Total Protein 6.0 L Albumin 3.0 L Globulin 3.0 Albumin/Globulin Ratio 1.0 L DS: Provider Date of admission: 05/16/16 11:10 Primary care physician: . 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
[2016-05-22] MEDS: POLYETHYLENE GLYCOL POWDER 17 GM PACK PO SCH (09:19)
[2016-05-22] MEDS: DOCUSATE SODIUM 100 MG CAPSULE PO SCH (09:20)
[2016-05-22] MEDS: PANTOPRAZOLE 40 MG TABLET PO SCH (09:21)
[2016-05-22] MEDS: FUROSEMIDE 40 MG TABLET PO SCH (09:21)
[2016-05-22] MEDS: TAMSULOSIN 0.4 MG CAPSULE PO SCH (09:21)
[2016-05-22] MEDS: AZITHROMYCIN 250 MG TABLET PO SCH (09:22)
[2016-05-22] MEDS: azaTHIOprine 50 MG TABLET PO SCH (09:22)
[2016-05-22] MEDS: CALCIUM (CARBONATE)/VITAMIN D 500 MG-200 UNIT TABLET PO SCH (09:23)
[2016-05-22] MEDS: BUDESONIDE/FORMOTEROL 160-4.5 INHALER 6 GM INH SCH (09:23)
[2016-05-22] MEDS: INSULIN REGULAR 100 UNIT/ML SUBCUT SCH (09:58)
[2016-05-22] MEDS: ENOXAPARIN 40 MG/0.4 ML SYRINGE SUBCUT SCH (11:47)
--- NOTE | 2016-05-27 08:02 | Physician Query Form ---
CLICK EDIT DOCUMENT TO SELECT QUERY ANSWER --> OK --> SIGN Sameera Perea RN Clinical Machine Shop Repair Technician W) [phone] (f) [phone] [email or web address] PROVIDERS: Make your selection(s) from the choices in EACH section by typing an "x" and enter comments in the comment section. Please use your independent medical judgment in providing your response. This request does not imply that any particular answer is desired or expected. CLINICAL INDICATORS: (Providers should not edit this section) Based on documentation of "Acute exacerbation of asthma". Pt. has history of sarcoidosis of lung. Pt. treated with IV Solu-medrol and Symbicort. Based on documentation of Asthma, can you please provide further specificity regarding the diagnosis? ( ) Mild intermittent extrinsic asthma with acute exacerbation ( ) Moderate persistent extrinsic asthma with acute exacerbation (X ) Severe persistent extrinsic asthma with acute exacerbation ( ) Mild intermittent extrinsic asthma with status asthmaticus ( ) Moderate intermittent extrinsic asthma with status asthmaticus ( ) Severe intermittent extrinsic asthma with status asthmaticus ( ) Other, please specify: ( ) Unable to determine COMMENTS: Use of terms such as suspected, likely, or probable (associated with a specific diagnosis that is being evaluated, monitored, or treated as if it exists) are acceptable and can be restated in the discharge summary if not ruled out. MTDD
== END 2016-05-22 12:17 | disposition home or self-care (01) | DRG 202 ==
LOC: N.ED 09:04 → N.EDINP 11:10 → SUATTDRO 11:10 → N.TELES 11:55
PROVIDERS: ADMIT Family Medicine; ATTEND Internal Medicine